=== PATIENT | female | born 2000 | race Hispanic/Latino ===

== ENCOUNTER 2023-11-09 01:05 | Emergency (ER) | payer MEDICAID ==
[~2023-11-09] VITALS: Ht 147.3 cm; Wt 55.3 kg
[2023-11-09] MEDS: ONDANSETRON ODT 4MG TAB SL ONE (01:35)
[2023-11-09] MEDS ORDERED: ONDA-104 PO (01:42)
[2023-11-09] MEDS ORDERED: OMEP40CA21 PO (01:42)
[2023-11-09] MEDS ORDERED: IBUP-1493 PO (01:42)
[2023-11-09 02:03] LABS: RAPID GROUP A STREP negative (NEGATIVE)
[2023-11-09 02:10] LABS: SARS-CoV-2, RNA, NAAT NEGATIVE SARS CoV-2 (NEGATIVE)
[2023-11-09 02:13] LABS: INFLUENZA TYPE A Negative For Type A (NEGATIVE); INFLUENZA TYPE B Negative For Type B (NEGATIVE)
[2023-11-09 03:04] VITALS: BP 106/68; PULSE 60; RESP 18; O2SAT 100
== END 2023-11-09 03:05 | disposition home or self-care (01) ==
LOC: EDH 01:05
DX: R11.2 Nausea with vomiting, unspecified (principal); R51.9 Headache, unspecified; Z20.822 Contact with and (suspected) exposure to COVID-19
CPT/HCPCS: 87635; 87804; 87880